=== PATIENT | female | born 1970 | race Caucasian/White ===

== ENCOUNTER 2019-04-05 10:21 | Outpatient (CLI) | payer OTHER ==
--- NOTE | 2019-04-09 07:40 | MMO ---
Bilateral MAMMO Bilat Screen DDI+DOT. CLINICAL HISTORY: Patient is 48 years old and is seen for screening. The patient has no family history of breast cancer. The patient has no personal history of cancer. VIEWS: The views performed were: bilateral craniocaudal with tomosynthesis and bilateral mediolateral oblique with tomosynthesis. FILMS COMPARED: The present examination has been compared to prior imaging studies performed at [facility] on 12/06/2013 and 12/20/2013. MAMMOGRAM FINDINGS: The breasts are heterogeneously dense, which could obscure a lesion on mammography. There is an area of architectural distortion seen in the left breast at 12 o'clock. In the right breast, there are no suspicious masses, calcifications or areas of architectural distortion. IMPRESSION: AREA OF ARCHITECTURAL DISTORTION IN THE LEFT BREAST REQUIRES ADDITIONAL EVALUATION. SPOT COMPRESSION IS RECOMMENDED. AN ULTRASOUND EXAM IS RECOMMENDED. THE RESULTS OF THIS EXAM WERE SENT TO THE PATIENT. ACR BI-RADS Category 0 - Incomplete: Need additional imaging evaluation. [facility] will notify the patient of the need for additional imaging services. MAMMOGRAPHY NOTE: 1. A negative mammogram report should not delay a biopsy if a dominant of clinically suspicious mass is present. 2. Approximately 10% to 15% of breast cancers are not detected by mammography. 3. Adenosis and dense breasts may obscure an underlying neoplasm.
== END 2019-04-05 10:22 | disposition home or self-care (01) ==
LOC: BICMAMMO 10:21
PROVIDERS: ATTEND Internal Medicine
DX: Z12.31 Encounter for screening mammogram for malignant neoplasm of breast (principal); N64.89 Other specified disorders of breast
CPT/HCPCS: 77063; 77067

== ENCOUNTER 2019-04-14 12:34 | Outpatient (CLI) | payer OTHER ==
--- NOTE | 2019-04-14 13:28 | MMO ---
Left Breast MAMMO Unilat Diag DDI LT+DOT. CLINICAL HISTORY: Patient is 48 years old and is seen for diagnostic exam. The patient has no family history of breast cancer. The patient has no personal history of cancer. The patient has a history of right Ultrasound Guided Core Biopsy in 2013 - benign. VIEWS: The views performed were: left craniocaudal spot compression with tomosynthesis; left mediolateral oblique spot compression with tomosynthesis; and left mediolateral with tomosynthesis. FILMS COMPARED: The present examination has been compared to prior imaging studies performed at [facility] on 04/05/2019 and 04/14/2019, and at [facility] on 12/06/2013 and 12/20/2013. MAMMOGRAM FINDINGS: The breast is heterogeneously dense, which could obscure a lesion on mammography. There is an irregular mass measuring 10 millimeters with spiculated margins seen in the left breast at 12 o'clock. IMPRESSION: MASS IN THE LEFT BREAST IS SUSPICIOUS. AN ULTRASOUND-GUIDED BREAST BIOPSY IS RECOMMENDED. SOLID ON ULTRASOUND. THE RESULTS OF THIS EXAM WERE SENT TO THE PATIENT. ACR BI-RADS Category 4 - Suspicious abnormality - biopsy should be considered MAMMOGRAPHY NOTE: 1. A negative mammogram report should not delay a biopsy if a dominant of clinically suspicious mass is present. 2. Approximately 10% to 15% of breast cancers are not detected by mammography. 3. Adenosis and dense breasts may obscure an underlying neoplasm.
--- NOTE | 2019-04-14 13:44 | ULT ---
LEFT BREAST ULTRASOUND: HISTORY: Follow up mass at 12 o'clock. FINDINGS: There is a poorly circumscribed, solid mass in the 12 o'clock position of the left breast, measuring approximately 1 x 1.1 x 1.2 cm in size with somewhat spiculated margins, corresponding to the mammogr aphic finding of concern, certainly worrisome for breast cancer. No evidence for axillary lymphadeno latoya. IMPRESSION: BI-RADS category 4-Suspicious findings. Ultrasound guided biopsy of the mass in the 12 o'clock position of the left breast is recommended. Findings were discussed with the patient, who is in agreement. Findings were discussed with Dr. Sung concerning this abnormal finding at 1:30 p.m. CODE CR POS: OFF
== END 2019-04-14 12:35 | disposition home or self-care (01) ==
LOC: BICMAMMO 12:34
PROVIDERS: ATTEND Internal Medicine
DX: R92.2 Inconclusive mammogram (principal); N63.22 Unspecified lump in the left breast, upper inner quadrant
CPT/HCPCS: G0279

== ENCOUNTER → 2019-04-20 | Day surgery (SDC) | payer OTHER ==
--- NOTE | 2019-04-20 13:52 | MMO ---
Left Breast MAMMO Unilat Diag DDI LT. CLINICAL HISTORY: Patient is 48 years old and is seen for diagnostic exam. The patient has a history of right Ultrasound Guided Core Biopsy in 2014 - benign. VIEWS: The views performed were: . FILMS COMPARED: The present examination has been compared to prior imaging studies performed at [facility] on 04/05/2019 and 04/14/2019, and at [facility] on 12/20/2013. MAMMOGRAM FINDINGS: The breast is heterogeneously dense, which could obscure a lesion on mammography. Appropriate biopsy clip position. IMPRESSION: FINDING IN THE LEFT BREAST IS CONFIRMED UTILIZING POST PROCEDURE MAMMOGRAM. THE RESULTS OF THIS EXAM WERE SENT TO THE PATIENT. MAMMOGRAPHY NOTE: 1. A negative mammogram report should not delay a biopsy if a dominant of clinically suspicious mass is present. 2. Approximately 10% to 15% of breast cancers are not detected by mammography. 3. Adenosis and dense breasts may obscure an underlying neoplasm.
--- NOTE | 2019-04-20 17:58 | ULT ---
ULTRASOUND GUIDED BIOPSY OF THE LEFT BREAST: 04/20/19 HISTORY: Left breast mass. Patient had a previous lumpectomy left breast. COMPARISON: 04/14/19. FINDINGS: Successful ultrasound guided biopsy of the left breast. Total of three 14 gauge core biopsy samples w ere obtained. Samples were placed directly in formalin. No immediate or postprocedure complication. TECHNIQUE: Consent obtained to perform an ultrasound guided biopsy of the left breast mass. The breast was prepp ed and draped in the sterile fashion. 1% lidocaine, buffered with sodium bicarbonate was used for lo catherine anesthesia. Under ultrasound guidance, three 14 gauge core biopsy samples were obtained and plac ed directly into formalin. Patient tolerated the procedure well. No immediate or postprocedure compl ication. IMPRESSION: Successful ultrasound guided biopsy left breast mass. Final pathologic diagnosis is pending. POS: [place]
== END ==
LOC: BICULT 12:30
PROVIDERS: ATTEND Internal Medicine
PROC: 0HBU3ZX Excision of Left Breast, Percutaneous Approach, Diagnostic (ICD-10-PCS; principal; 2019-04-20)
DX: C50.812 Malignant neoplasm of overlapping sites of left female breast (principal)
CPT/HCPCS: 19083; 88305; 88341; 88342